=== PATIENT | female | born 1975 | race Caucasian/White ===

== ENCOUNTER 2020-01-10 08:08 | Outpatient (RCR) | payer MEDICAID, SELFPAY ==
[2020-01-10] MEDS: Normal Saline Flush 10 ML SYR 30 ML IVP (08:29)
[2020-01-10 08:34] LABS: HCT 32.7 % (36.0-46.0); HGB 10.5 g/dL (12.0-15.5); Mean Corp. HGB Concentration 32.1 g/dL (32.0-36.0); Mean Corpuscular Hemoglobin 34.1 pg (27.0-33.0); Mean Corpuscular Volume 106.2 fL (80-95); Platelet Count 157 x1000/uL (130-400); RBC 3.08 m/cumm (4.00-5.20); RBC Distribution Width 18.5 % (11.7-14.6); White Blood Cell Count 11.32 k/cumm (4.4-10.8)
[2020-01-10 08:57] LABS: ALT 12 U/L (14-59); AST 39 U/L (15-37); Albumin 2.3 g/dL (3.4-5.0); Alkaline Phosphatase 233 U/L (46-116); BUN 8 mg/dL (7-18); Bilirubin, Total 0.8 mg/dL (0.2-1.0); CREATININE 0.51 mg/dL (0.55-1.02); Calcium 8.3 mg/dL (8.5-10.1); Chloride 99 mmol/L (98-107); Glucose 93 mg/dL (74-106); Sodium 137 mmol/L (136-145); Total Protein 6.4 g/dL (6.4-8.2)
[2020-01-10 08:59] LABS: Absolute Basophil Count 0.11 k/cumm (0.0-0.2); Absolute Neutrophil Count 7.81 k/cumm (1.2-6.7); Anisocytosis 1+; Atypical Lymphocytes % 1; Diff Comment Manual Differential; Macrocytosis 2+; Polychromasia Present
[2020-01-10 09:05] LABS: Potassium 2.8 mmol/L (3.5-5.1)
[2020-01-12 15:02] LABS: CA 19-9 19429 U/mL (<35)
== END 2020-01-15 23:59 | disposition home or self-care (01) ==
LOC: INF 08:08
PROVIDERS: Visit Provider Internal Medicine Hematology & Oncology
DX: C25.9 Malignant neoplasm of pancreas, unspecified (principal); C78.7 Secondary malignant neoplasm of liver and intrahepatic bile duct; Z45.2 Encounter for adjustment and management of vascular access device
CPT/HCPCS: 36591; 80053; 85025; 86301

== ENCOUNTER 2020-02-10 01:27 | Outpatient (RCR) | payer MEDICAID, SELFPAY | END 2020-02-15 23:59 | disposition home or self-care (01) | LOC: INF 01:27 | PROVIDERS: Visit Provider Internal Medicine Hematology & Oncology | DX: R69 Illness, unspecified (principal) ==

== ENCOUNTER 2020-03-09 00:48 | Outpatient (RCR) | payer MEDICAID, SELFPAY ==
[2020-02-17] MEDS: Normal Saline Flush 10 ML SYR IVP (08:38)
[2020-02-17 08:45] LABS: Abs Immature Grans 0.02 k/cumm (0.0-0.09); Absolute Basophil Count 0.03 k/cumm (0.0-0.2); Absolute Eosinophil Count 0.15 k/cumm (0.0-0.7); Absolute Lymphocyte Count 1.31 k/cumm (1.2-3.4); Absolute Monocyte Count 0.82 k/cumm (0.11-0.7); Absolute Neutrophil Count 5.56 k/cumm (1.2-6.7); Basophils % 0.4; Eosinophils % 1.9; HCT 32.1 % (36.0-46.0); HGB 10.4 g/dL (12.0-15.5); Immature Grans % 0.3 %; Lymphocytes % 16.6; Mean Corp. HGB Concentration 32.4 g/dL (32.0-36.0); Mean Corpuscular Hemoglobin 34.8 pg (27.0-33.0); Mean Corpuscular Volume 107.4 fL (80-95); Mean Platelet Volume 10.5 fL (8.0-11.0); Monocytes % 10.4; Neutrophils % 70.4; Platelet Count 218 x1000/uL (130-400); RBC 2.99 m/cumm (4.00-5.20); White Blood Cell Count 7.89 k/cumm (4.4-10.8)
[2020-02-17 08:58] LABS: ALT 13 U/L (14-59); AST 32 U/L (15-37); Albumin 2.1 g/dL (3.4-5.0); Alkaline Phosphatase 234 U/L (46-116); Anion Gap 3.6 mmol/L (3-11); BUN 6 mg/dL (7-18); Bilirubin, Total 0.7 mg/dL (0.2-1.0); CO2 32.4 mmol/L (21.0-32.0); CREATININE 0.53 mg/dL (0.55-1.02); Calcium 8.5 mg/dL (8.5-10.1); Chloride 101 mmol/L (98-107); Glucose 99 mg/dL (74-106); Potassium 3.6 mmol/L (3.5-5.1); Sodium 137 mmol/L (136-145); Total Protein 6.7 g/dL (6.4-8.2)
[2020-02-17 09:16] LABS: Diff Comment Diff Reviewed; Macrocytosis 2+
[2020-02-17 11:35] LABS: FREE T4 1.36 ng/dL (0.76-1.46); TSH 2.51 uIU/mL (0.36-3.74)
[2020-02-18 12:43] LABS: CA 19-9 14453 U/mL (<35)
[2020-02-24] MEDS: Normal Saline Flush 10 ML SYR IVP (08:08)
[2020-02-24 08:21] LABS: Abs Immature Grans 0.01 k/cumm (0.0-0.09); Absolute Basophil Count 0.02 k/cumm (0.0-0.2); Absolute Eosinophil Count 0.12 k/cumm (0.0-0.7); Absolute Lymphocyte Count 0.79 k/cumm (1.2-3.4); Absolute Monocyte Count 0.29 k/cumm (0.11-0.7); Absolute Neutrophil Count 2.61 k/cumm (1.2-6.7); Basophils % 0.5; Eosinophils % 3.1; HCT 27.5 % (36.0-46.0); Immature Grans % 0.3 %; Lymphocytes % 20.6; Mean Corp. HGB Concentration 32.7 g/dL (32.0-36.0); Mean Corpuscular Hemoglobin 34.7 pg (27.0-33.0); Mean Corpuscular Volume 106.2 fL (80-95); Mean Platelet Volume 11.6 fL (8.0-11.0); Monocytes % 7.6; Neutrophils % 67.9; RBC 2.59 m/cumm (4.00-5.20); RBC Distribution Width 15.6 % (11.7-14.6); White Blood Cell Count 3.84 k/cumm (4.4-10.8)
[2020-02-24 08:32] LABS: ALT 22 U/L (14-59); AST 68 U/L (15-37); Albumin 1.8 g/dL (3.4-5.0); Alkaline Phosphatase 222 U/L (46-116); Anion Gap 4.9 mmol/L (3-11); BUN 7 mg/dL (7-18); Bilirubin, Total 0.9 mg/dL (0.2-1.0); CO2 33.1 mmol/L (21.0-32.0); CREATININE 0.47 mg/dL (0.55-1.02); Calcium 8.4 mg/dL (8.5-10.1); Chloride 98 mmol/L (98-107); Glucose 97 mg/dL (74-106); Sodium 136 mmol/L (136-145); Total Protein 6.5 g/dL (6.4-8.2)
[2020-02-24 08:36] LABS: Potassium 2.9 mmol/L (3.5-5.1)
[2020-02-24 08:48] LABS: Anisocytosis 1+; Diff Comment Diff Reviewed; Macrocytosis 2+; Platelet Count 49 x1000/uL (130-400)
[2020-02-24 09:17] LABS: FREE T4 1.43 ng/dL (0.76-1.46); TSH 3.32 uIU/mL (0.36-3.74)
== END 2020-03-16 23:59 | disposition home or self-care (01) ==
LOC: INF 00:48
PROVIDERS: Visit Provider Internal Medicine Hematology & Oncology
DX: C25.9 Malignant neoplasm of pancreas, unspecified (principal); C78.7 Secondary malignant neoplasm of liver and intrahepatic bile duct; Z45.2 Encounter for adjustment and management of vascular access device; N28.89 Other specified disorders of kidney and ureter; E03.2 Hypothyroidism due to medicaments and other exogenous substances
CPT/HCPCS: 36591; 80053; 84439; 84443; 85025; 86301